=== PATIENT | male | born 1955 | race Caucasian/White ===

== ENCOUNTER 2019-06-29 17:41 | Inpatient (IN) | payer OTHER ==
[~2019-06-29] VITALS: Ht 180.3 cm; Wt 68.9 kg
[2019-06-29] MEDS ORDERED: AZITHROMYCIN IV 500 MG in IV DEXTROSE 5% 250 ML IV ONE (18:00)
[2019-06-29] MEDS ORDERED: ACETAMINOPHEN ES 500 MG TABLET PO ONE (18:00)
[2019-06-29] MEDS ORDERED: PIPERACILLIN SODIUM/TAZOBACTAM 3.375 G in IV DEXTROSE 5% 50 ML IV ONE (18:00)
[2019-06-29] MEDS ORDERED: VANCOMYCIN IV 1,000 MG in IV DEXTROSE 5% 250 ML IV ONE (18:00)
[2019-06-29] MEDS ORDERED: ACETAMINOPHEN ES 500 MG TABLET ONE (18:03)
[2019-06-29] MEDS ORDERED: AZITHROMYCIN 500MG/ D5W 250ML IVPB **ER PYXIS ONLY IV ONE (18:03)
[2019-06-29] MEDS ORDERED: VANCOMYCIN IV 200 ML ONE (18:04)
[2019-06-29] MEDS ORDERED: BACL10TA PO (18:24)
[2019-06-29] MEDS ORDERED: TYLENOL#3 PO (18:24)
[2019-06-29] MEDS ORDERED: GUAIFENESIN PO (18:24)
[2019-06-29] MEDS ORDERED: ASCO500W7 PO (18:24)
[2019-06-29] MEDS ORDERED: NALO4SPR NS (18:24)
[2019-06-29] MEDS ORDERED: PROHEAL PO (18:24)
[2019-06-29] MEDS ORDERED: MULT-213 PO (18:24)
[2019-06-29] MEDS ORDERED: BISA10SU61 RC (18:24)
[2019-06-29] MEDS ORDERED: TAMS-3 PO (18:24)
[2019-06-29] MEDS ORDERED: ACET-2154 PO (18:24)
[2019-06-29] MEDS ORDERED: NA P133E RC (18:24)
[2019-06-29] MEDS ORDERED: MELA3TAB41 PO (18:24)
[2019-06-29] MEDS ORDERED: MAGN400O6 PO (18:24)
[2019-06-29 18:43] LABS: BASOPHILS % (AUTO) 0.3 % (0.0-2.0); HEMATOCRIT 41.2 % (36.7-47.1); HEMOGLOBIN 13.8 g/dL (12.5-16.3); LYMPHOCYTES # (AUTO) 0.9 K/uL (20.0-40.0); LYMPHOCYTES % (AUTO) 14.1 % (20.5-51.5); MEAN CORPUSCULAR HEMOGLOBIN 31.9 uug (23.8-33.4); MEAN CORPUSCULAR HGB CONC 34 g/dL (32.5-36.3); MEAN CORPUSCULAR VOLUME 94.9 fL (73.0-96.2); MONOCYTES # (AUTO) 0.7 K/uL (2.0-10.0); MONOCYTES % (AUTO) 10.7 % (0.0-11.0); NEUTROPHILS # (AUTO) 4.8 K/uL (1.8-8.9); NEUTROPHILS % (AUTO) 74.9 % (38.5-71.5); PLATELET COUNT (AUTO) 239 K/uL (152-348); RED BLOOD CELL COUNT(AUTO) 4.34 MIL/uL (4.06-5.63); WHITE BLOOD COUNT (AUTO) 6.4 K/uL (3.6-10.2)
[2019-06-29 18:52] LABS: CREATININE 0.8 mg/dL (0.6-1.3); POTASSIUM 4.3 mmol/L (3.5-5.1)
--- NOTE | 2019-06-29 18:54 | NUR ---
Patient is awake, alert, oriented x4 in no distress. He is coughing. IV placed. Medications started. Flu swab done. Placed on a monitor. Patient states he will urinate in the urinal.
[2019-06-29 19:04] LABS: BILIRUBIN,DIRECT 0.1 mg/dL (0.0-0.2); BILIRUBIN,TOTAL 0.4 mg/dL (0.2-1.0); TOTAL PROTEIN, SERUM 7.2 g/dL (6.4-8.2)
--- NOTE | 2019-06-29 19:08 | NUR ---
Hand off report given to Charbel LOPEZ
--- NOTE | 2019-06-29 19:10 | NUR ---
Dr. Martínez called back and accepted patient admitted to [facility] 310 , under care of Dr. Martínez.
[2019-06-29 19:15] LABS: MAGNESIUM 2.1 mg/dL (1.8-2.4); PHOSPHOROUS 3.1 mg/dL (2.5-4.9)
[2019-06-29] MEDS ORDERED: PIPERACILLIN/TAZOBACTAM/D5W 50 ML IV ONE (19:26)
[2019-06-29 19:27] LABS: FERRITIN 352 ng/mL (26-388); LACTATE DEHYDROGENASE 218 U/L (85-227)
--- NOTE | 2019-06-29 19:40 | NUR ---
[facility] [place] [facility]LEMET[facility] WITH DX FEVER. PATIENT TESTED POSITIVE FOR COVID. DROPLET ISOLATION PRECAUTIONS OBSERVED. PATIENT ALERT AND ORIENTED X 4 . NO SOB, AFEBRILE, B/P WNL. ALL NEEDS MET .WILL CONTINUE TO MONITOR Addendum: 06/30/19 at 0036 by JEFFERY STUBBS RN DISREGARD THE ABOVE NOTES. WRONG TIME
--- NOTE | 2019-06-29 20:00 | NUR ---
Received report from AM nurse at the beginning of shift. Saw patient at 1915 and started care. Pt noted awake, alert and fully oriented. Not in active distress. O2 sat at 90-92% on RA, reinforced O2 2LPM via NC. Placed Face Mask on patient and provided towel to cover mouth with when coughing. Crackles heard, even without auscultation. Noted soaked with sweat. Changed into hospital gown and changed all sheets covering patient. Fever improved to 99.1. All due IV medications administered, Vanco still running at this time as ordered on L hand 20 G. Contracted on bilateral knees. No other complaints at this time. Will keep safe and isolated on COVID precautions until transfer.
--- NOTE | 2019-06-29 20:10 | NUR ---
Report given to Ning LOPEZ.
[2019-06-29] MEDS ORDERED: BISACODYL 10 MG SUPP.RECT RC PRN (20:30)
[2019-06-29] MEDS ORDERED: TYLENOL PO SCH (20:30)
[2019-06-29] MEDS ORDERED: ONDANSETRON 4 MG/2 ML VIAL IV PRN (20:30)
[2019-06-29] MEDS ORDERED: MAGNESIUM HYDROXIDE 30 ML LIQUID UDC PO PRN (20:30)
[2019-06-29] MEDS ORDERED: ACETAMINOPHEN 325 MG TABLET PO PRN (20:30)
[2019-06-29] MEDS ORDERED: MORPHINE SULFATE 2 MG/1 ML DISP.SYRIN IV PRN (20:30)
[2019-06-29] MEDS ORDERED: FLEET ENEMA 133 ML BOTTLE RC PRN (20:30)
--- NOTE | 2019-06-29 20:50 | NUR ---
Patient transferred to Room 310, in stable condition. Covid precautions followed.
[2019-06-29] MEDS: TAMSULOSIN HCL 0.4 MG CAP.SR.24H PO SCH (21:21)
[2019-06-29] MEDS: IV NS 1000 ML 1,000 ML IV PRN (21:21)
[2019-06-29 21:30] VITALS: BP 112/55
--- NOTE | 2019-06-29 21:30 | NUR ---
PATIENT BROUGHT IN VIA [facility] ADMITTED O TELEMETRY WITH DX FEVER. PATIENT TESTED POSITIVE FOR COVID. DROPLET ISOLATION PRECAUTIONS OBSERVED. PATIENT ALERT AND ORIENTED X 4 . NO SOB, AFEBRILE, B/P WNL. IV ATB STILL INFUSING . ALL NEEDS MET .WILL CONTINUE TO MONITOR
[2019-06-29] MEDS: ACETAMINOPHEN/CODEINE 300-30 MG TABLET PO PRN (23:11)
[2019-06-30 00:06] LABS: *BILIRUBIN,URIN NEGATIVE (NEGATIVE); *BLOOD, URINE NEGATIVE (NEGATIVE); *CLARITY,URINE CLEAR (CLEAR); *COLOR,URINE YELLOW (YELLOW); *KETONES,URINE 1+ (NEGATIVE); *UROBILINOGEN,URINE 0.2 E.U./dl (NORMAL); LEUKOCYTE ESTERASE ,URINE NEGATIVE (NEGATIVE); NITRITE, URINE NEGATIVE (NEGATIVE); PH,URINE 5.5 (5.0-8.0); UGLUCOSE NEGATIVE (NEGATIVE)
[2019-06-30 00:14] LABS: BACTERIA,URINE NONE SEEN /HPF (NONE SEEN); RBC,URINE NONE SEEN /HPF (0-3); SQUAMOUS EPITHELIAL CELL,UR NONE SEEN /HPF (NONE SEEN); WBC,URINE 0-3 /HPF (0-3)
[2019-06-30 01:31] VITALS: BP 120/60
[2019-06-30 04:37] VITALS: BP 120/71
--- NOTE | 2019-06-30 06:50 | NUR ---
PATIENT INTERMITTENTLY SLEEPING, NO SOB, T 99.4 COOLING MEASURES OBSERVED. USING O2 @2LPM VIA NC. PAIN MEDICATION ADMINISTERED ON C/O BILATERAL KNEE PAIN WHICH HELPED FOR THE PAIN . ALL NEEDS MET CONTINUING ON DROPLET ISOLATION
[2019-06-30 07:18] LABS: BASOPHILS % (AUTO) 0.4 % (0.0-2.0); EOSINOPHILS % (AUTO) 0.4 % (0.0-7.0); HEMATOCRIT 39.2 % (36.7-47.1); HEMOGLOBIN 13.2 g/dL (12.5-16.3); LYMPHOCYTES # (AUTO) 1.4 K/uL (20.0-40.0); LYMPHOCYTES % (AUTO) 31.6 % (20.5-51.5); MEAN CORPUSCULAR HEMOGLOBIN 32.1 uug (23.8-33.4); MEAN CORPUSCULAR HGB CONC 34 g/dL (32.5-36.3); MEAN CORPUSCULAR VOLUME 95.1 fL (73.0-96.2); MONOCYTES # (AUTO) 0.6 K/uL (2.0-10.0); MONOCYTES % (AUTO) 14.2 % (0.0-11.0); NEUTROPHILS # (AUTO) 2.4 K/uL (1.8-8.9); NEUTROPHILS % (AUTO) 53.4 % (38.5-71.5); PLATELET COUNT (AUTO) 227 K/uL (152-348); RED BLOOD CELL COUNT(AUTO) 4.12 MIL/uL (4.06-5.63); WHITE BLOOD COUNT (AUTO) 4.4 K/uL (3.6-10.2)
[2019-06-30 07:34] LABS: BILIRUBIN,TOTAL 0.4 mg/dL (0.2-1.0); CREATININE 0.8 mg/dL (0.6-1.3); MAGNESIUM 2.1 mg/dL (1.8-2.4); PHOSPHOROUS 2.9 mg/dL (2.5-4.9); POTASSIUM 3.8 mmol/L (3.5-5.1); TOTAL PROTEIN, SERUM 6.7 g/dL (6.4-8.2)
[2019-06-30 07:41] LABS: THYROID STIMULATING HORMONE 0.266 mIU/mL (0.358-3.740)
--- NOTE | 2019-06-30 08:00 | NUR ---
PATIENT IS AWAKE ALERT AND ORIENTED REMAIN ON ISOLATION FOR COVID 17 WITH O2 WITH NO SHORTNESS OF BREATH AT THIS TIME.CALL LIGHTS AND PERSONAL BELONGINGS ARE WITHIN EASY REACH MADE COMFORTABLE AND WILL CONTINUE TO OBSEVRE.
[2019-06-30] MEDS: MULTIVIT, IRON, MIN NO. 8, FA TABLET PO SCH (08:37)
[2019-06-30] MEDS: ASCORBIC ACID 500 MG TABLET PO SCH (08:37)
[2019-06-30] MEDS: BACLOFEN 10 MG TABLET PO SCH ×3 (08:37→17:08)
[2019-06-30] MEDS: ACETAMINOPHEN/CODEINE 300-30 MG TABLET PO PRN ×3 (08:54→22:01)
--- NOTE | 2019-06-30 08:54 | NUR ---
PATIENT STATED C/O PAIN ON BOTH KNEES MEDICATED ORDERED MADE COMFORTABLE AND WILL CONTINUE TO OBSERVE AND PROVIDE SAFE AND THERAPEUTIC ENVIRONMENT AT ALL TIMES.
[2019-06-30] MEDS ORDERED: Medication Not On Formulary EA (Multivitamins W-Minerals (Multivitamin With Minerals) 1 PO SCH (09:00)
[2019-06-30 11:40] VITALS: BP 123/69
[2019-06-30] MEDS: IV NS 1000 ML 1,000 ML IV PRN (14:01)
[2019-06-30 15:49] VITALS: BP 124/63
[2019-06-30] MEDS ORDERED: GUAIFENESIN/CODEINE 5 ML LIQUID UDC PO PRN (17:00)
[2019-06-30] MEDS: AZITHROMYCIN IV 500 MG in IV DEXTROSE 5% 250 ML IV SCH (17:08)
--- NOTE | 2019-06-30 18:00 | NUR ---
NOTED PATIENT HAS OCCASSIONAL MOIST COUGH DR BARRY NOTIFIED WITH NEW ORDERS AND NOTED REMAIN ON ATB ORDERED WITH NO ADVERSE OR ALLERGIC REACTIONS AT THIS TIME.REMAIN ON ISOLATION ORDERED MADE COMFORTABLE WILL CONTINUE TO OBSERVE.
[2019-06-30 20:00] VITALS: BP 135/70
[2019-06-30] MEDS: TAMSULOSIN HCL 0.4 MG CAP.SR.24H PO SCH (20:48)
[2019-06-30] MEDS: GUAIFENESIN/DEXTROMETHORPHAN 5 ML UDC PO PRN (20:51)
[2019-06-30] MEDS: BENZOCAINE/MENTH/CETYLPYRD LOZENGE MM PRN (22:00)
[2019-06-30] MEDS: MELATONIN 3 MG TABLET PO PRN (22:01)
[2019-07-01 04:00] VITALS: BP 123/60
[2019-07-01] MEDS: IV NS 1000 ML 1,000 ML IV PRN ×2 (05:33→20:33)
[2019-07-01] MEDS: GUAIFENESIN/DEXTROMETHORPHAN 5 ML UDC PO PRN ×3 (06:05→20:34)
[2019-07-01 06:30] LABS: BASOPHILS % (AUTO) 0.4 % (0.0-2.0); EOSINOPHILS # (AUTO) 0.1 K/uL (0.0-0.7); EOSINOPHILS % (AUTO) 1.3 % (0.0-7.0); HEMATOCRIT 37.3 % (36.7-47.1); HEMOGLOBIN 12.5 g/dL (12.5-16.3); LYMPHOCYTES # (AUTO) 1.4 K/uL (20.0-40.0); LYMPHOCYTES % (AUTO) 33.3 % (20.5-51.5); MEAN CORPUSCULAR HEMOGLOBIN 32.1 uug (23.8-33.4); MEAN CORPUSCULAR HGB CONC 34 g/dL (32.5-36.3); MEAN CORPUSCULAR VOLUME 95.8 fL (73.0-96.2); MONOCYTES # (AUTO) 0.5 K/uL (2.0-10.0); MONOCYTES % (AUTO) 12.5 % (0.0-11.0); NEUTROPHILS # (AUTO) 2.3 K/uL (1.8-8.9); NEUTROPHILS % (AUTO) 52.5 % (38.5-71.5); PLATELET COUNT (AUTO) 247 K/uL (152-348); RED BLOOD CELL COUNT(AUTO) 3.89 MIL/uL (4.06-5.63); WHITE BLOOD COUNT (AUTO) 4.3 K/uL (3.6-10.2)
[2019-07-01 06:52] LABS: CREATININE 0.7 mg/dL (0.6-1.3); MAGNESIUM 2.1 mg/dL (1.8-2.4); POTASSIUM 3.7 mmol/L (3.5-5.1)
--- NOTE | 2019-07-01 08:00 | NUR ---
RECEIVED PATIENT IN BED AWAKE ALERT AND ORIENTED STATED SLEPT ON AND OFF LAST NOC. CALL LIGHTS AND PERSONAL BELONGINGS ARE WITHIN EASY REACH REMAIN ON O2 WITH NO S/S OF SHORTNESS OF BREATH OCCASSIONAL COUGHING EPISODES NOTED MADE COMFORTABLE WILL CONTINUE TO OBSERVE.
[2019-07-01] MEDS: BACLOFEN 10 MG TABLET PO SCH ×3 (08:08→16:22)
[2019-07-01] MEDS: ACETAMINOPHEN/CODEINE 300-30 MG TABLET PO PRN ×3 (08:08→20:34)
[2019-07-01] MEDS: ASCORBIC ACID 500 MG TABLET PO SCH (08:08)
[2019-07-01] MEDS: MULTIVIT, IRON, MIN NO. 8, FA TABLET PO SCH (08:08)
[2019-07-01 12:00] VITALS: BP 131/63
[2019-07-01] MEDS: BENZOCAINE/MENTH/CETYLPYRD LOZENGE MM PRN ×2 (13:14→20:34)
--- NOTE | 2019-07-01 13:35 | NUR ---
IN BED REQUESTED FOR PAIN MEDICATION COUGH MEDICATION AND A LOZENGES GIVEN ORDERED MADE COMFORTABLE WILL CONTINUE TO OBSERVE.
[2019-07-01 16:00] VITALS: BP 126/67
[2019-07-01] MEDS: AZITHROMYCIN IV 500 MG in IV DEXTROSE 5% 250 ML IV SCH (17:03)
--- NOTE | 2019-07-01 18:28 | NUR ---
CONTINUES TO HAVE ON AND OFF COUGHING STATED THAT THE COUGH MEDS HELPED HIM SOME REMAIN ON ATB ORDERED WITH NO ADVERSE OR ALLERGIC REACTIONS AT THIS TIME WILL CONTINUE TO OBSERVE.
[2019-07-01] MEDS: TAMSULOSIN HCL 0.4 MG CAP.SR.24H PO SCH (20:34)
[2019-07-01] MEDS: MELATONIN 3 MG TABLET PO PRN (20:34)
[2019-07-01 21:33] VITALS: BP 140/71
[2019-07-02 05:14] VITALS: BP 135/61
[2019-07-02] MEDS: IV NS 1000 ML 1,000 ML IV PRN (06:13)
[2019-07-02 07:08] LABS: BASOPHILS % (AUTO) 0.4 % (0.0-2.0); EOSINOPHILS # (AUTO) 0.2 K/uL (0.0-0.7); EOSINOPHILS % (AUTO) 3.7 % (0.0-7.0); HEMATOCRIT 37.5 % (36.7-47.1); HEMOGLOBIN 12.6 g/dL (12.5-16.3); LYMPHOCYTES # (AUTO) 1.5 K/uL (20.0-40.0); LYMPHOCYTES % (AUTO) 35.8 % (20.5-51.5); MEAN CORPUSCULAR HEMOGLOBIN 32.1 uug (23.8-33.4); MEAN CORPUSCULAR HGB CONC 34 g/dL (32.5-36.3); MEAN CORPUSCULAR VOLUME 95.3 fL (73.0-96.2); MONOCYTES # (AUTO) 0.6 K/uL (2.0-10.0); MONOCYTES % (AUTO) 13.1 % (0.0-11.0); PLATELET COUNT (AUTO) 292 K/uL (152-348); RED BLOOD CELL COUNT(AUTO) 3.94 MIL/uL (4.06-5.63); WHITE BLOOD COUNT (AUTO) 4.3 K/uL (3.6-10.2)
[2019-07-02 07:09] LABS: ALANINE AMINOTRANSFERASE 23 U/L (16-63); ALKALINE PHOSPHATASE 34 U/L (50-136); ASPARTATE AMINOTRANSFERASE 26 U/L (15-37); BILIRUBIN,TOTAL 0.4 mg/dL (0.2-1.0); CARBON DIOXIDE 27 mmol/L (21-32); CHLORIDE 103 mmol/L (98-107); CREATININE 0.5 mg/dL (0.6-1.3); GLUCOSE 89 mg/dL (74-106); MAGNESIUM 2.3 mg/dL (1.8-2.4); PHOSPHOROUS 3.4 mg/dL (2.5-4.9); POTASSIUM 3.6 mmol/L (3.5-5.1); TOTAL PROTEIN, SERUM 6.4 g/dL (6.4-8.2); UREA NITROGEN, BLOOD 5 mg/dL (7-18)
--- NOTE | 2019-07-02 08:00 | NUR ---
PATIENT IS AWAKE ALERT AND ORIENTED BUT MORE AGGRESSIVE SEEMS TO BE UNHAPPY THIS MORNING MORE SARCASTIC BUT IS NOT ELABORATING DETAILS OF HIS BAD TEMPER USING O2 ON AND OFF HAS NO SOB AT THIS TIME IVF IN PROGRESS ORDERED NOTED WITH OCASSIONAL COUGH EPISODES CALL LIGHT AND PERSONAL BELONGINGS ARE WITHIN EASY REACH NOT IN DISTRESS WILL CONTINUE TO OBSERVE.
[2019-07-02] MEDS: ASCORBIC ACID 500 MG TABLET PO SCH (08:40)
[2019-07-02] MEDS: MULTIVIT, IRON, MIN NO. 8, FA TABLET PO SCH (08:40)
[2019-07-02] MEDS: ACETAMINOPHEN/CODEINE 300-30 MG TABLET PO PRN ×2 (08:40→16:56)
[2019-07-02] MEDS: GUAIFENESIN/DEXTROMETHORPHAN 5 ML UDC PO PRN ×2 (08:40→16:55)
[2019-07-02] MEDS: BENZOCAINE/MENTH/CETYLPYRD LOZENGE MM PRN ×2 (08:40→16:55)
[2019-07-02] MEDS: BACLOFEN 10 MG TABLET PO SCH ×3 (08:40→16:55)
[2019-07-02] MEDS: PROTEIN SUPPLEMENT (PROSTAT) 30 ML LIQUID PO SCH (08:41)
[2019-07-02] MEDS ORDERED: POTASSIUM CHLORIDE 20 MEQ TAB.PRT.SR PO ONE (10:00)
--- NOTE | 2019-07-02 10:00 | NUR ---
PATIENT SEEN AND EXAMINED BY DR KELLEY WITH NEW ORDERS AND NOTED.
[2019-07-02] MEDS ORDERED: IPRATROPIUM/ALBUTEROL SULFATE 14.7 GM INHALER ONE (11:13)
[2019-07-02 11:33] VITALS: BP 136/74
[2019-07-02] MEDS: IPRATROPIUM/ALBUTEROL SULFATE 14.7 GM INHALER INH SCH ×3 (12:14→18:23)
--- NOTE | 2019-07-02 15:35 | NUR ---
RESTING STILL HAS ON AND OFF COUGHING IN A BETTER MOOD AT THIS TIME APPETITE REMAINS POOR STATED HAS NO APPETITE CALL LIGHTS AND HIS PERSONAL BELONGINGS ARE WITHIN EASY REACH WILL CONTINUE TO OBSERVE PATIENT WAS INSTRUCTED THAT DR KELLEY HAD ORDERED SPUTUM COLLECTION PROVIDED HIM WITH A SPECIMEN COUGH AND EDUCATED HIM ON USE AND HE EXPRESSED UNDERSTANDING.
[2019-07-02 15:58] VITALS: BP 126/75
--- NOTE | 2019-07-02 18:00 | NUR ---
RESTING REMAINS WITH POOR APPETITE OFFERED SNACKS BUT PATIENT REFUSED ALSO REFUSED THE ENSURE THAT WAS SENT FROM THE KITCHEN STATED NOT HUNGRY AT THIS TIME
[2019-07-02] MEDS: AZITHROMYCIN 250 MG TABLET PO SCH (18:22)
[2019-07-02 20:05] VITALS: BP 144/81
[2019-07-02] MEDS: TAMSULOSIN HCL 0.4 MG CAP.SR.24H PO SCH (21:12)
[2019-07-03] MEDS: GUAIFENESIN/DEXTROMETHORPHAN 5 ML UDC PO PRN ×3 (00:32→16:39)
[2019-07-03] MEDS: ACETAMINOPHEN/CODEINE 300-30 MG TABLET PO PRN ×3 (00:37→16:39)
[2019-07-03 04:00] VITALS: BP 113/64
--- NOTE | 2019-07-03 06:46 | NUR ---
Patient slept well. On O2 at 1lpm via NC, saturation at 93%. w/ episode of coughing, PRN cough medicine given x 1. Swab for coronavirus sent to lab. All needs attended. Will endorse accordingly
[2019-07-03] MEDS: IPRATROPIUM/ALBUTEROL SULFATE 14.7 GM INHALER INH SCH ×4 (07:05→18:06)
[2019-07-03 07:20] LABS: BASOPHILS % (AUTO) 0.4 % (0.0-2.0); EOSINOPHILS # (AUTO) 0.2 K/uL (0.0-0.7); EOSINOPHILS % (AUTO) 3.6 % (0.0-7.0); HEMATOCRIT 40.1 % (36.7-47.1); HEMOGLOBIN 13.4 g/dL (12.5-16.3); LYMPHOCYTES # (AUTO) 1.7 K/uL (20.0-40.0); LYMPHOCYTES % (AUTO) 33.6 % (20.5-51.5); MEAN CORPUSCULAR HEMOGLOBIN 31.8 uug (23.8-33.4); MEAN CORPUSCULAR HGB CONC 34 g/dL (32.5-36.3); MEAN CORPUSCULAR VOLUME 94.9 fL (73.0-96.2); MONOCYTES # (AUTO) 0.7 K/uL (2.0-10.0); MONOCYTES % (AUTO) 13.4 % (0.0-11.0); NEUTROPHILS # (AUTO) 2.5 K/uL (1.8-8.9); PLATELET COUNT (AUTO) 374 K/uL (152-348); RED BLOOD CELL COUNT(AUTO) 4.22 MIL/uL (4.06-5.63)
[2019-07-03 07:53] LABS: CARBON DIOXIDE 26 mmol/L (21-32); CHLORIDE 111 mmol/L (98-107); CREATININE 0.6 mg/dL (0.6-1.3); FERRITIN 399 ng/mL (26-388); GLUCOSE 86 mg/dL (74-106); LACTATE DEHYDROGENASE 210 U/L (85-227); PHOSPHOROUS 3.3 mg/dL (2.5-4.9); POTASSIUM 4.1 mmol/L (3.5-5.1); UREA NITROGEN, BLOOD 7 mg/dL (7-18)
[2019-07-03] MEDS: BENZOCAINE/MENTH/CETYLPYRD LOZENGE MM PRN ×2 (08:38→16:38)
[2019-07-03] MEDS: BACLOFEN 10 MG TABLET PO SCH ×3 (08:38→16:38)
[2019-07-03] MEDS: MULTIVIT, IRON, MIN NO. 8, FA TABLET PO SCH (08:38)
[2019-07-03] MEDS: ASCORBIC ACID 500 MG TABLET PO SCH (08:38)
[2019-07-03] MEDS: PROTEIN SUPPLEMENT (PROSTAT) 30 ML LIQUID PO SCH (08:53)
--- NOTE | 2019-07-03 09:00 | NUR ---
AWAKE ALERT AND ORIENTED IN BED REMAINS ON COVID 19 ISOLATION AND PRECAUTION MEDICATED FOR PAIN AND COUGH PER PATIENTS REQUEST APPETITE REMAINS POOR PATIENT OFFERED SNACKS AND HE DECLINED USING HIS O2 ON AND OFF CALL LIGHTS AND PERSONAL BELONGINGS ARE WITHIN EASY REACH MADE COMFORTABLE WILL CONTINUE TO OBSERVE.
[2019-07-03] MEDS: ENOXAPARIN SODIUM 40 MG/0.4 ML DISP.SYRIN SQ SCH (09:40)
[2019-07-03 11:00] VITALS: BP 134/81
--- NOTE | 2019-07-03 12:14 | NUR ---
PATIENT REFUSED LOVENOX EXPLAINED TO HIM THE BENEFIT OF TAKING LOVENOX STATED WILL THINK ABOUT IT BUT FOR NOW DOES NOT WANT IT.PATIENT IS ALERT AND ORIENTED AND PATIENTS RIGHT TO REFUSE RESPECTED WILL INFORM FELIZ DAILEY OF THE REFUSAL.
--- NOTE | 2019-07-03 15:00 | NUR ---
FELIZ BOWDEN AWARE THAT PATIENT REFUSED LOVENOX S ORDERED WITH NO NEW ORDERS AT THIS TIME.
[2019-07-03 16:00] VITALS: BP 124/81
[2019-07-03] MEDS: AZITHROMYCIN 250 MG TABLET PO SCH (17:38)
--- NOTE | 2019-07-03 18:00 | NUR ---
AWAKE ALERT AND ORIENTED STATED FELLING BETTER BUT STILL HAS COUGHS AFEBRILE MEDICATED FOR PAIN PER HIS REQUEST MADE COMFORTABLE WILL CONTINUE TO OBSERVE.
[2019-07-03 20:00] VITALS: BP 143/76
[2019-07-03] MEDS: TAMSULOSIN HCL 0.4 MG CAP.SR.24H PO SCH (21:24)
[2019-07-03] MEDS: MELATONIN 3 MG TABLET PO PRN (21:24)
[2019-07-04] MEDS: ACETAMINOPHEN/CODEINE 300-30 MG TABLET PO PRN ×4 (01:25→23:31)
--- NOTE | 2019-07-04 05:24 | NUR ---
patient a/o x4. all needs met and medications administered. fall precaution in place. c/o of pain x1. tylenol #3 administered and tolerated well. will continue to monitor and endorse care.
[2019-07-04 06:10] VITALS: BP 132/79
[2019-07-04 07:16] LABS: BASOPHILS % (AUTO) 0.5 % (0.0-2.0); EOSINOPHILS # (AUTO) 0.2 K/uL (0.0-0.7); EOSINOPHILS % (AUTO) 3.2 % (0.0-7.0); HEMATOCRIT 40.6 % (36.7-47.1); LYMPHOCYTES # (AUTO) 1.9 K/uL (20.0-40.0); LYMPHOCYTES % (AUTO) 26.9 % (20.5-51.5); MEAN CORPUSCULAR HEMOGLOBIN 32.4 uug (23.8-33.4); MEAN CORPUSCULAR HGB CONC 34 g/dL (32.5-36.3); MEAN CORPUSCULAR VOLUME 94.1 fL (73.0-96.2); MONOCYTES # (AUTO) 0.9 K/uL (2.0-10.0); NEUTROPHILS % (AUTO) 56.4 % (38.5-71.5); PLATELET COUNT (AUTO) 437 K/uL (152-348); RED BLOOD CELL COUNT(AUTO) 4.32 MIL/uL (4.06-5.63); WHITE BLOOD COUNT (AUTO) 7.1 K/uL (3.6-10.2)
[2019-07-04 07:30] LABS: CREATININE 0.7 mg/dL (0.6-1.3); MAGNESIUM 1.9 mg/dL (1.8-2.4); PHOSPHOROUS 3.7 mg/dL (2.5-4.9); POTASSIUM 3.8 mmol/L (3.5-5.1)
--- NOTE | 2019-07-04 07:30 | NUR ---
Received pt in bed awake, alert and oriented. Patient removed O2 NC, stated that he doesn't need it and he's breathing fine, saturating 90% on RA. Pt has COPD and Dr. Lewis aware. Productive cough noted w/ romero sputum. No distress noted or complaints of SOB at this time. IV FA heplock in place. Complained of bilateral knee pain, stated legs are contracted. Will apply warm compress and give pain PRN med as ordered. Bed locked in lowest position, side rails up2x.Call light and belongings within reach. Will continue to monitor.
--- NOTE | 2019-07-04 09:15 | NUR ---
patient refused Vit. C. explained risks and benefits and verbalized understanding. No distress or complaints at this time
[2019-07-04] MEDS: ASCORBIC ACID 500 MG TABLET PO SCH (10:20)
[2019-07-04] MEDS: BACLOFEN 10 MG TABLET PO SCH ×3 (10:20→17:35)
[2019-07-04] MEDS: PROTEIN SUPPLEMENT (PROSTAT) 30 ML LIQUID PO SCH (10:20)
[2019-07-04] MEDS: ENOXAPARIN SODIUM 40 MG/0.4 ML DISP.SYRIN SQ SCH (10:22)
[2019-07-04] MEDS: MULTIVIT, IRON, MIN NO. 8, FA TABLET PO SCH (10:24)
[2019-07-04] MEDS: IPRATROPIUM/ALBUTEROL SULFATE 14.7 GM INHALER INH SCH ×4 (10:25→19:00)
--- NOTE | 2019-07-04 11:29 | NUR ---
complained of bilateral knee pain. Tylenol 3 PRN given as ordered. And applied warm compress.
[2019-07-04 11:40] VITALS: BP 133/73
[2019-07-04] MEDS: GUAIFENESIN/DEXTROMETHORPHAN 5 ML UDC PO PRN (13:09)
[2019-07-04] MEDS ORDERED: BENZOCAINE/MENTH/CETYLPYRD LOZENGE MM PRN (13:45)
[2019-07-04 16:24] VITALS: BP 140/68
[2019-07-04] MEDS ORDERED: METHYL SALICYLATE/MENTHOL CREAM 28 GM TUBE TOP PRN (16:45)
[2019-07-04] MEDS: AZITHROMYCIN 250 MG TABLET PO SCH (17:35)
--- NOTE | 2019-07-04 18:57 | NUR ---
Patient remained on room air throughout shift w/ no complaints of SOB or distress sat 90%. Complained of bilateral knee pain, Tylenol #3 PRN given as ordered. PT seen the patient and patient tolerated well. Will endorse to next shift
[2019-07-04 20:44] VITALS: BP 124/73
[2019-07-04] MEDS: TAMSULOSIN HCL 0.4 MG CAP.SR.24H PO SCH (21:07)
--- NOTE | 2019-07-05 05:23 | NUR ---
no s/s of acute distress noted. v/s stable. denies SOB. intermittent dry coughing noted. c/o of pain x1 on shift. Tylenol #3 administered. safety precaution in place. all needs meds and medications administered. will continue to monitor.
[2019-07-05 06:01] VITALS: BP 114/76
[2019-07-05] MEDS: IPRATROPIUM/ALBUTEROL SULFATE 14.7 GM INHALER INH SCH ×4 (07:05→19:00)
--- NOTE | 2019-07-05 07:40 | NUR ---
jennifer contacted for covid 19 results at [facility], positive results
--- NOTE | 2019-07-05 08:00 | NUR ---
Received patient in bed, awake and verbally responsive. No signs of distress noted. Afebrile. No complain of pain at this time. On contact and droplet precaution for positive covid 19. Proper PPE strictly Observed. Kept clean and comfortable. Will continue to monitor.
[2019-07-05] MEDS: BACLOFEN 10 MG TABLET PO SCH ×3 (08:24→16:03)
[2019-07-05] MEDS: ASCORBIC ACID 500 MG TABLET PO SCH (08:24)
[2019-07-05] MEDS: MULTIVIT, IRON, MIN NO. 8, FA TABLET PO SCH (08:24)
[2019-07-05] MEDS: PROTEIN SUPPLEMENT (PROSTAT) 30 ML LIQUID PO SCH (08:24)
[2019-07-05] MEDS: ENOXAPARIN SODIUM 40 MG/0.4 ML DISP.SYRIN SQ SCH (08:27)
[2019-07-05] MEDS: ACETAMINOPHEN/CODEINE 300-30 MG TABLET PO PRN ×3 (09:23→23:31)
[2019-07-05 12:00] VITALS: BP 119/66
[2019-07-05 16:00] VITALS: BP 132/72
--- NOTE | 2019-07-05 18:17 | NUR ---
Patient is awake, alert and verbally responsive. No signs of distress noted. No SOB. Saturating 94% on Room Air. Afebrile. Pain medication given as ordered, Tylenol #3 x 2 given as Ordered for generalized body Pain. Patient refused Combivent twice, explained risk and benefits x 3, still refused. Kept clean and comfortable. Will continue to monitor.
--- NOTE | 2019-07-05 18:23 | NUR ---
Patient awake and verbally responsive. saturating 94% on 3L nasal canula, No SOB. NO complain of Pain or discomfort. Afebrile. All due medications given as ordered. Last Blood sugar is 144, 2 units given per sliding scale. Will endorse to Oncoming Nurse. Addendum: 07/05/19 at 1828 by WOO ADKINS RN Wrong Patient
--- NOTE | 2019-07-05 19:30 | NUR ---
Received patient lying in bed. AAOx4. In no acute distress. Afebrile. VS WNL. Inno acute distress. Denies any SOB at this time. generalized pain tolerable at this time. IV site on Left FA intact and patent. Needs attended to and met. Droplet and contact precaution observed. Safety measure initiated and call pfeiffer within reached.
[2019-07-05] MEDS ORDERED: CEFTRIAXONE 1 G in IV DEXTROSE 5% 50 ML IV SCH (20:00)
[2019-07-05] MEDS: TAMSULOSIN HCL 0.4 MG CAP.SR.24H PO SCH (20:23)
[2019-07-05 21:52] VITALS: BP 123/79
[2019-07-05] MEDS: GUAIFENESIN/DEXTROMETHORPHAN 5 ML UDC PO PRN (23:31)
[2019-07-06 04:26] VITALS: BP 127/72
--- NOTE | 2019-07-06 06:14 | NUR ---
AAOx4. In no acute distress. Afebrile. VS WNL. In no acute distress. Denies any SOB at this time. IV site on Left FA intact and patent. No adverse reaction noted from IV ABX. Needs attended to and met. Droplet and contact precaution maintained. Safety measure maintained and call pfeiffer within reached.
--- NOTE | 2019-07-06 07:10 | NUR ---
Received pt in bed awake, alert and oriented. Able to answer questions and obey commands. On RA at this time with no complaints of SOB and no distress noted, O2 NC at bedside PRN. IV left FA 20g HL in place. Complained of bilateral knee pain, will give Tylenol #3 PRN as ordered. Needs attended to and met. Droplet and contact precaution maintained. Call light and belongings within reach. Bed locked in lowest position withe siderails 2x up. No other complaints. Will continue to monitor.
[2019-07-06 07:42] LABS: BASOPHILS % (AUTO) 0.3 % (0.0-2.0); EOSINOPHILS # (AUTO) 0.3 K/uL (0.0-0.7); EOSINOPHILS % (AUTO) 3.2 % (0.0-7.0); HEMATOCRIT 43.1 % (36.7-47.1); HEMOGLOBIN 14.2 g/dL (12.5-16.3); LYMPHOCYTES # (AUTO) 2.1 K/uL (20.0-40.0); LYMPHOCYTES % (AUTO) 22.9 % (20.5-51.5); MEAN CORPUSCULAR HEMOGLOBIN 31.6 uug (23.8-33.4); MEAN CORPUSCULAR HGB CONC 33 g/dL (32.5-36.3); MEAN CORPUSCULAR VOLUME 95.9 fL (73.0-96.2); MONOCYTES # (AUTO) 1.1 K/uL (2.0-10.0); MONOCYTES % (AUTO) 11.7 % (0.0-11.0); NEUTROPHILS # (AUTO) 5.8 K/uL (1.8-8.9); NEUTROPHILS % (AUTO) 61.9 % (38.5-71.5)
[2019-07-06 07:55] LABS: PLATELET COUNT (AUTO) 560 K/uL (152-348); WHITE BLOOD COUNT (AUTO) 9.3 K/uL (3.6-10.2)
[2019-07-06 08:08] LABS: CARBON DIOXIDE 26 mmol/L (21-32); CHLORIDE 104 mmol/L (98-107); CREATININE 0.5 mg/dL (0.6-1.3); FERRITIN 378 ng/mL (26-388); GLUCOSE 89 mg/dL (74-106); LACTATE DEHYDROGENASE 171 U/L (85-227); MAGNESIUM 2.3 mg/dL (1.8-2.4); PHOSPHOROUS 3.3 mg/dL (2.5-4.9); POTASSIUM 4.2 mmol/L (3.5-5.1); UREA NITROGEN, BLOOD 18 mg/dL (7-18)
[2019-07-06 08:14] VITALS: BP 110/84
[2019-07-06] MEDS: PROTEIN SUPPLEMENT (PROSTAT) 30 ML LIQUID PO SCH (08:45)
[2019-07-06] MEDS: IPRATROPIUM/ALBUTEROL SULFATE 14.7 GM INHALER INH SCH ×3 (08:46→15:00)
[2019-07-06] MEDS: BACLOFEN 10 MG TABLET PO SCH ×2 (09:32→12:56)
[2019-07-06] MEDS: MULTIVIT, IRON, MIN NO. 8, FA TABLET PO SCH (09:32)
[2019-07-06] MEDS: ACETAMINOPHEN/CODEINE 300-30 MG TABLET PO PRN ×2 (09:32→17:32)
[2019-07-06] MEDS: ASCORBIC ACID 500 MG TABLET PO SCH (09:33)
[2019-07-06] MEDS: ENOXAPARIN SODIUM 40 MG/0.4 ML DISP.SYRIN SQ SCH (09:33)
[2019-07-06 15:00] VITALS: BP 122/80
--- NOTE | 2019-07-06 16:41 | NUR ---
Called [facility] for DC Transfer endorsement. Talked to Coral LOPEZ, all questions answered.
--- NOTE | 2019-07-06 16:42 | NUR ---
Called and complained of bilateral knee pain, Tylenol #3 PRN as ordered given
[2019-07-06 17:20] VITALS: BP 133/71
--- NOTE | 2019-07-06 18:40 | NUR ---
Pt assisted in changing to own clothes, simple mask on. Pt picked up by ambulance to transfer to [facility]. DC instructions and forms co-signed with another nurse since pt can't sign due to isolation order. Patient's belongings checked, signed and all accounted for. DC Summary papers and report given to [facility] ambulance personnel. IV left FA 20g in place due to continuation of IV abx. Pt left unit via stretcher with no distress, complaints or SOB at this time.
[2019-07-06] MEDS ORDERED: BACLOFEN 10 MG TABLET PO SCH (21:00)
[2019-07-07] MEDS ORDERED: PROTEIN SUPPLEMENT (PROSTAT) 30 ML LIQUID PO SCH (09:00)
== END 2019-07-06 18:40 | DRG 720 ==
LOC: ER 17:41 → TELE3 20:17 → MEDSURG3 06-30 20:00
PROVIDERS: ADMIT Internal Medicine
DX: A41.89 Other specified sepsis (principal); U07.1 COVID-19; J12.89 Other viral pneumonia; J44.0 Chronic obstructive pulmonary disease with (acute) lower respiratory infection; J44.1 Chronic obstructive pulmonary disease with (acute) exacerbation; I50.9 Heart failure, unspecified; Z87.891 Personal history of nicotine dependence; E44.1 Mild protein-calorie malnutrition; Z87.01 Personal history of pneumonia (recurrent); R53.1 Weakness; E88.09 Other disorders of plasma-protein metabolism, not elsewhere classified; N40.0 Benign prostatic hyperplasia without lower urinary tract symptoms; M19.90 Unspecified osteoarthritis, unspecified site; R73.03 Prediabetes
CPT/HCPCS: 36415; 70030-TC; 71045; 83605; 83615; 83735; 84100; 84443; 85025; 85730; 87040; 87070; 87077; 87086; 87400; 93005; A4663; A9150; G0378; J0456; J0696; J1650; J2543; J3370; J7030; J7050; J7060; Q0144